=== PATIENT | female | born 1960 | race Asian ===

== ENCOUNTER 2016-08-11 17:02 | Emergency (ER) | payer OTHER, MEDICAID ==
[~2016-08-11] VITALS: Ht 152.4 cm; Wt 51.8 kg
[~2016-08-11 17:02] MED LIST: LISI1TAB13 PO; LORA-192 PO; MECL12.585 PO
[2016-08-11] MEDS ORDERED: ONDANSETRON HCL 4 MG/2 ML VIAL IVP ONE (22:15)
[2016-08-11] MEDS ORDERED: KETOROLAC TROMETHAMINE 30 MG/ML VIAL IVP ONE (22:15)
[2016-08-11] MEDS ORDERED: SODIUM CHLORIDE 0.9% 1,000 ML IV ONE (22:15)
[2016-08-11] MEDS ORDERED: DiphenhydrAMINE HCL 50 MG/ML VIAL IVP ONE (22:15)
[2016-08-11 22:41] VITALS: BP 124/74
[2016-08-11] MEDS ORDERED: LORazepam 1 MG TABLET PO ONE (23:00)
[2016-08-11] MEDS ORDERED: MORPHINE SULFATE 2 MG/ML SYRINGE IVP ONE (23:00)
== END 2016-08-11 23:46 | disposition home or self-care (01) ==
LOC: EMS 17:04
DX: G43.909 Migraine, unspecified, not intractable, without status migrainosus (principal); I10 Essential (primary) hypertension
CPT/HCPCS: 96361; 96374; 96375; 99284; J1200; J1885; J2405; J7030

== ENCOUNTER 2018-08-30 09:34 | Emergency (ER) | payer MEDICARE, OTHER ==
[~2018-08-30] VITALS: Ht 157.5 cm; Wt 68.2 kg
[~2018-08-30 09:34] MED LIST changes: -MECL12.585 PO
[2018-08-30] MEDS ORDERED: KETOROLAC TROMETHAMINE 30 MG/ML VIAL IVP ONE (11:30)
[2018-08-30] MEDS ORDERED: ONDANSETRON HCL 4 MG/2 ML VIAL IVP ONE (11:30)
[2018-08-30] MEDS ORDERED: LORazepam 2 MG/ML VIAL IVP ONE (11:30)
[2018-08-30] MEDS ORDERED: SODIUM CHLORIDE 0.9% 1,000 ML IV ONE (11:30)
[2018-08-30 12:10] LABS: BASOPHILS % (AUTO) 1.7 % (0.0-2.0); EOSINOPHILS % (AUTO) 0.9 % (1.0-6.0); HEMATOCRIT 40.5 % (36-46); HEMOGLOBIN 13.9 g/dL (12.0-16.0); LYMPHOCYTES # (AUTO) 1.5 K/uL (1.0-4.8); LYMPHOCYTES % (AUTO) 22.9 % (22.0-44.0); MEAN CORPUSCULAR HEMOGLOBIN 29.8 pg (26.0-34.0); MEAN CORPUSCULAR HGB CONC 34.3 G/dL (31.0-37.0); MEAN CORPUSCULAR VOLUME 87 fL (80-100); MONOCYTES # (AUTO) 0.4 K/uL (0.1-1.0); MONOCYTES % (AUTO) 6.7 % (2.0-9.0); NEUTROPHILS # (AUTO) 4.5 K/uL (1.8-7.7); NEUTROPHILS % (AUTO) 67.8 % (40.0-70.0); PLATELET COUNT (AUTO) 354 K/uL (150-450); RED BLOOD CELL COUNT(AUTO) 4.67 MIL/uL (4.00-5.20); RED CELL DISTRIBUTION WIDTH 12.9 % (11.5-14.5)
[2018-08-30 12:29] LABS: ANION GAP 14 mmol/L (8-16); CALCIUM, TOTAL 10.5 mg/dL (8.8-10.5); CARBON DIOXIDE 26 mmol/L (22-29); CHLORIDE 95 mmol/L (98-107); CREATININE 0.85 mg/dL (0.60-1.30); GLOMERULAR FILTR. RATE CALC > 60 mL/min (>60); GLUCOSE,RANDOM 100 mg/dL (70-110); POTASSIUM 3.4 mmol/L (3.5-5.1); SODIUM SERUM 135 mmol/L (136-145); UREA NITROGEN, BLOOD 8 mg/dL (7-18)
[2018-08-30 12:35] LABS: ALANINE AMINOTRANSFERASE 23 U/L (12-78); ALKALINE PHOSPHATASE 125 U/L (46-116); ASPARTATE AMINOTRANSFERASE 26 U/L (15-37); BILIRUBIN,TOTAL 0.5 mg/dL (0.1-1.0); LIPASE 140 U/L (73-393); TOTAL PROTEIN, SERUM 9.7 g/dL (6.4-8.2)
[2018-08-30 13:24] VITALS: BP 136/78
== END 2018-08-30 13:39 | disposition home or self-care (01) ==
LOC: EMS 09:34
DX: E87.6 Hypokalemia (principal); R42 Dizziness and giddiness; R51 Headache; M54.6 Pain in thoracic spine; F41.9 Anxiety disorder, unspecified; I10 Essential (primary) hypertension; F32.9 Major depressive disorder, single episode, unspecified
CPT/HCPCS: 36415; 70450; 80053; 83690; 85025; 96361; 96374; 96375; 99284; J1885; J2060; J2405; J7030

== ENCOUNTER 2020-11-07 07:25 | Day surgery (SDC) | payer MEDICARE, OTHER ==
[2020-11-05 13:58] LABS: COVID AG,FIA SOURCE NASOPHARYNGEAL
[~2020-11-07] VITALS: Ht 152.4 cm; Wt 56.4 kg
[2020-11-07] MEDS ORDERED: LIDOCAINE 2%/EPI 1:200,000/PF 10 ML VIAL IM ONE (07:26)
[2020-11-07] MEDS ORDERED: FentaNYL CITRATE PF 100 MCG/2 ML VIAL IVP ONE (07:26)
[2020-11-07] MEDS ORDERED: MIDAZOLAM HCL 2 MG/2 ML VIAL IVP ONE (07:26)
[2020-11-07] MEDS ORDERED: TETRACAINE HCL/PF 0.5% 4 ML OPHTHALMIC SOLUTION OU ONE (07:26)
[2020-11-07] MEDS ORDERED: LIDOCAINE/PF 2% 5 ML VIAL IM ONE (07:26)
[2020-11-07] MEDS ORDERED: PROPOFOL 1% 20 ML VIAL IVP ONE (07:26)
[2020-11-07] MEDS ORDERED: NEOMYCIN/POLYMYXIN B/DEXAMETH 3.5 GM OPHTHALMIC OINTMENT OU ONE (07:26)
[2020-11-07] MEDS ORDERED: RINGERS SOLUTION,LACTATED 500 ML IV ONE ×2 (07:37→08:30)
[2020-11-07] MEDS ORDERED: TROPICAMIDE 1% 2 ML OPHTHALMIC SOLUTION ONE (07:37)
[2020-11-07] MEDS ORDERED: MOXIFLOXACIN HCL 0.5% 3 ML OPHTHALMIC SOLUTION ONE (07:37)
[2020-11-07] MEDS ORDERED: PHENYLEPHRINE HCL 2.5% 2 ML OPHTHALMIC SOLUTION ONE (07:37)
[2020-11-07] MEDS ORDERED: KETOROLAC TROMETHAMINE 0.5% 5 ML OPHTHALMIC SOLUTION ONE (07:37)
[2020-11-07] MEDS ORDERED: TETRACAINE HCL/PF 0.5% 4 ML OPHTHALMIC SOLUTION ONE (07:51)
[2020-11-07 08:22] LABS: GLUCOMETER DEV NAME(LOC) SDS.; GLUCOSE,POINT OF CARE 103 MG/DL (70-110)
[2020-11-07] MEDS ORDERED: MitoMYcin 0.2 MG/VIAL KIT FOR OPHTHALMIC USE OD ONE (11:30)
[2020-11-07] MEDS ORDERED: TETRACAINE HCL/PF 0.5% 4 ML OPHTHALMIC SOLUTION OD ONE (11:30)
== END 2020-11-07 10:05 | disposition home or self-care (01) ==
LOC: SURGERY 07:25
PROVIDERS: ATTEND Ophthalmology
DX: H11.001 Unspecified pterygium of right eye (principal); I10 Essential (primary) hypertension; F41.9 Anxiety disorder, unspecified; Z98.890 Other specified postprocedural states; Z79.899 Other long term (current) drug therapy; Z88.8 Allergy status to other drugs, medicaments and biological substances
CPT/HCPCS: 65426; 82962; 87426; 93005; A9575; C9803; J2250; J2704; J3010; J3490; J7120; V2790

== ENCOUNTER 2023-08-06 15:48 | Emergency (ER) | payer MEDICARE, OTHER ==
[~2023-08-06] VITALS: Ht 157.5 cm; Wt 66.4 kg
[2023-08-06] MEDS ORDERED: 0.9% SODIUM CHLORIDE 10 ML SYRINGE IVP PRN (16:00)
[2023-08-06] MEDS: ONDANSETRON HCL 4 MG/2 ML VIAL IVP ONE (16:26)
[2023-08-06] MEDS: SODIUM CHLORIDE 0.9% 2,000 ML IV ONE (16:26)
[2023-08-06] MEDS: ACETAMINOPHEN 1000 MG/ISO-OSM 100 ML IV ONE (16:26)
[2023-08-06 16:43] LABS: BASOPHILS % (AUTO) 0.4 % (0.0-2.0); EOSINOPHILS % (AUTO) 0.1 % (1.0-6.0); HEMATOCRIT 44.6 % (36-46); HEMOGLOBIN 14.9 g/dL (12.0-16.0); LYMPHOCYTES # (AUTO) 1.6 K/uL (1.0-4.8); LYMPHOCYTES % (AUTO) 12.7 % (22.0-44.0); MEAN CORPUSCULAR HEMOGLOBIN 30.1 pg (26.0-34.0); MEAN CORPUSCULAR HGB CONC 33.5 G/dL (31.0-37.0); MEAN CORPUSCULAR VOLUME 90 fL (80-100); MONOCYTES # (AUTO) 0.6 K/uL (0.1-1.0); MONOCYTES % (AUTO) 4.8 % (2.0-9.0); NEUTROPHILS # (AUTO) 10.4 K/uL (1.8-7.7); PLATELET COUNT (AUTO) 333 K/uL (150-450); RED BLOOD CELL COUNT(AUTO) 4.97 MIL/uL (4.00-5.20); RED CELL DISTRIBUTION WIDTH 13.4 % (11.5-14.5); WHITE BLOOD COUNT (AUTO) 12.6 K/uL (4.5-11.0)
[2023-08-06 17:02] LABS: ANION GAP 14 mmol/L (8-16); CARBON DIOXIDE 26 mmol/L (22-29); CHLORIDE 98 mmol/L (98-107); CREATININE 0.79 mg/dL (0.60-1.30); GLOMERULAR FILTR. RATE CALC > 60 mL/min (>60); GLUCOSE,RANDOM 100 mg/dL (70-110); POTASSIUM 3.4 mmol/L (3.5-5.1); SODIUM SERUM 138 mmol/L (136-145); UREA NITROGEN, BLOOD 11 mg/dL (7-18)
[2023-08-06 17:06] LABS: B-TYPE NATRIURETIC PEPTIDE 18 pg/mL (0-100)
[2023-08-06 17:09] LABS: TROPONIN I-HIGH SENSITIVITY 6 ng/L (<51)
[2023-08-06 17:11] LABS: LACTIC ACID 1.5 mmol/L (0.4-2.0)
[2023-08-06] MEDS ORDERED: IOHEXOL 350 MG/ML 100 ML VIAL ONE (17:17)
[2023-08-06] MEDS ORDERED: SODIUM CHLORIDE 0.9% 100 ML ONE (17:17)
[2023-08-06 17:26] LABS: ALANINE AMINOTRANSFERASE 35 U/L (12-78); ALBUMIN 4.6 g/dL (3.4-5.0); ALKALINE PHOSPHATASE 133 U/L (46-116); ASPARTATE AMINOTRANSFERASE 26 U/L (15-37); BILIRUBIN,TOTAL 1.2 mg/dL (0.1-1.0); CREATINE KINASE, TOTAL ONLY 144 U/L (26-192); LIPASE 29 U/L (16-77); TOTAL PROTEIN, SERUM 9.4 g/dL (6.4-8.2)
[2023-08-06] MEDS: MORPHINE SULFATE 2 MG/ML SYRINGE IVP ONE (17:49)
[2023-08-06 18:16] LABS: COVID AG,FIA SOURCE NASAL SWAB
[2023-08-06 18:31] LABS: APPEARANCE,URINE CLEAR (CLEAR); BILIRUBIN,URINE NEGATIVE (NEGATIVE); COLOR,URINE COLORLESS (YELLOW); GLUCOSE, URINE (UA) NEGATIVE (NEGATIVE); KETONES,URINE NEGATIVE (NEGATIVE); LEUKOCYTE ESTERASE ,URINE NEGATIVE (NEGATIVE); NITRATE,URINE NEGATIVE (NEGATIVE); OCCULT BLOOD,URINE TRACE (NEGATIVE); PROTEIN,URINE NEGATIVE (NEGATIVE); SPECIFIC GRAVITIY, URINE 1.005 (1.003-1.030); UROBILINOGEN,URINE <=1.0 mg/dL (<=1.0)
[2023-08-06 18:32] VITALS: BP 135/82
[2023-08-06 18:48] LABS: INFLUENZA TYPE A NEGATIVE FOR TYPE A (NEGATIVE); INFLUENZA TYPE B NEGATIVE FOR TYPE B (NEGATIVE); SARS-COV2 (COVID) ANTIGEN,FIA Negative (Negative)
[2023-08-06 18:59] LABS: BACTERIA,URINE None Seen /HPF (None Seen); RBC,URINE None Seen /HPF (0-2); SQUAMOUS EPITHELIAL CELL,UR Rare /LPF (None Seen); WBC,URINE None Seen /HPF (0-5)
[2023-08-06 19:31] VITALS: PULSE 88; RESP 16; TEMP 98.5
== END 2023-08-06 20:43 | disposition home or self-care (01) ==
LOC: EMS 15:53
DX: R50.9 Fever, unspecified (principal); R10.13 Epigastric pain; F41.9 Anxiety disorder, unspecified; F32.A Depression, unspecified; I10 Essential (primary) hypertension; Z98.890 Other specified postprocedural states; Z20.822 Contact with and (suspected) exposure to COVID-19
CPT/HCPCS: 99291; 74177; 96365; 76705; 71045; 96375; 87426; 80053; 81001; 82550; 83605; 83690; 83880; 84484; 85025; 87040; 87804; 36415; 93005; 84145; J2270; J2405; Q9967; J7050; J0131; 81003